=== PATIENT | female | born 1990 | race Caucasian/White ===

== ENCOUNTER 2025-03-18 13:14 | Emergency (ER) | payer BC, SELFPAY ==
[2025-03-18 13:22] VITALS: BP 128/66
[2025-03-18 14:05] LABS: ALT (SGPT) 21 U/L (0-35); AST (SGOT) 22 U/L (14-36); Albumin 5.3 g/dl (3.5-5.0); Alkaline Phosphatase 44 U/L (38-126); Blood Urea Nitrogen 18 mg/dl (7-17); Calcium 10.4 mg/dl (8.4-10.2); Carbon Dioxide 19 mmol/L (22-30); Chloride 109 mmol/L (98-107); Glucose 157 mg/dl (70-99); Lipase 72 U/L (23-300); Potassium 3.8 mmol/L (3.5-5.1); Sodium 136 mmol/L (135-145); Total Protein 7.7 g/dl (6.3-8.2); eGFR > 60.00
[2025-03-18 14:18] LABS: Hematocrit 37.6 % (37.0-47.0); Hemoglobin 13.2 g/dL (12.0-16.0); Mean Corp Hgb Conc. 35.1 g/dL (33.0-37.0); Mean Corpuscular Volume 89.5 fL (81.0-99.0); Nucleated Red Blood Cells % 0 %; Platelet Count 237 10^3/uL (130-400); Red Cell Dist. Width 13.0 % (11.5-14.5)
--- NOTE | 2025-03-18 17:53 | ED.GENMED ---
History of Present Illness
General
Chief Complaint: Abdominal Symptoms
Source: patient
Exam Limitations: none
Time Seen by Provider: 03/18/25 17:27
Nursing documentation reviewed up to this point in time: agreed with
History of Present Illness
History of Present Illness:
The patient is a 34-year-old female with a history of 'sliding hiatal hernia,' presenting with severe nausea, vomiting, and abdominal pain, which began 2 days ago. The patient reports awakening with nausea and vomiting, alongside an urgent need for
bowel movements but has had significant diarrhea, had one small liquid stool today. The condition became considerably worse around 4 a.m. The patient recalls a previous episode in April where droperidol was administered, notably preventing
hospitalization at that time. She took Zofran 11 a.m. with no relief. She states she cannot take Reglan as it makes her vomit.
She states she has had cyclical vomiting the past but states these symptoms are not consistent with that
Patient states it is her 'sliding hiatal hernia' that is causing her symptoms as she has had a similar episode about 1 year ago. She had a GI doctor but her insurance recently changed so she cannot go back to that person she is requesting the GI
doctor on staff here.
Past History
Past History
ED Past Medical History: Other (esophagitis, IBS, gastroenteritis, cyclical vomiting)
ED Past Surgical History: Other (endoscopy)
Review of Systems
Review of Systems
Allergies reviewed?: Yes
All Other Systems: ROS reviewed and negative except as documented in HPI and ROS
ABD/GI: Reports abdominal pain, nausea, vomiting and diarrhea (one small episode earlier today); Denies bloody stools or black stools
Phy Exam
Physical Exam
Physical Exam:
GENERAL: Moderate distress, actively retching. A&Ox3.
CONSTITUTIONAL: Afebrile.
EYES: clear, conjunctivae normal
ENMT: moist mucus membranes, Pharynx nl
RESPIRATORY: Regular respirations, nonlabored, lungs clear.
CARDIOVASCULAR: Regular rate and rhythm, no murmurs, no rubs.
GI: Soft, nontender, normal BS
MUSCULOSKELETAL: Moves with ease. Well perfused.
SKIN: Warm, dry, pink
PSYCH: Anxious mood and affect. Well kept, interactive and appropriate
NEUROLOGIC: Awake, alert and oriented. No focal neurological deficits
Course
Orders/Labs/Results
Orders:
Orders
03/18/25 13:24
EKG [Electrocardiogram (*1)] Urgent
Reason for Study: Syncope
03/18/25 13:25
EKG- Treatment ONCE
03/18/25 13:38
Complete Blood Count/With Diff Urgent
Comprehensive Metabolic Panel Urgent
HCG, Serum Qualitative Screen Urgent
Comment: ADD ON
Lipase Urgent
03/18/25 17:47
0.9% Sodium Chloride 1000 ml [Nss] 1,000 ml IV BOLUS
03/18/25 17:53
droPERidol [Inapsine] 1.25 mg IV NOW STA
03/18/25 18:20
Add On- LAB Urgent
Tests Added?: Serum hCG qualitative
03/18/25 18:25
Pantoprazole [Protonix IV] 80 mg IV NOW STA
Abnormal Lab Results
03/18/25
13:38
WBC 18.1 H 10^3/uL
(4.8-10.8)
MCH 31.4 H pg
(27.0-31.0)
Abs Immat Gran (auto) 0.1 H 10^3/uL
(0-0.05)
Absolute Neuts (auto) 16.1 H 10^3/uL
(1.4-6.5)
Absolute Lymphs (auto) 1.1 L 10^3/uL
(1.2-3.4)
Absolute Monos (auto) 0.7 H 10^3/uL
(0.1-0.6)
Neutrophils % 89.3 H %
(42.2-75.2)
Lymphocytes % 6.0 L %
(20.5-51.1)
Chloride 109 H mmol/L
(98-107)
Carbon Dioxide 19 L mmol/L
(22-30)
BUN 18 H mg/dl
(7-17)
Creatinine 0.5 L mg/dL
(0.6-1.0)
Glucose 157 H mg/dl
(70-99)
Calcium 10.4 H mg/dl
(8.4-10.2)
Albumin 5.3 H g/dl
(3.5-5.0)
03/18/25 13:38
03/18/25 13:38
Vital Signs
Initial and Last Documented VS:
Initial Vital Signs
Temp Pulse Resp BP Pulse Ox
99.0 F 80 17 128/66 100
03/18/25 13:22 03/18/25 13:22 03/18/25 13:22 03/18/25 13:22 03/18/25 13:22
Last Documented Vital Signs
Temp Pulse Resp BP Pulse Ox
99.0 F 80 17 128/66 86
03/18/25 13:22 03/18/25 13:22 03/18/25 13:22 03/18/25 13:22 03/18/25 18:45
MDM/Problems Addressed
Differential Diagnosis Includes:
Acute gastroenteritis, pancreatitis, viral gastroenteritis, GERD, Cannibis hyperemesis
MDM/Problems Addressed:
The patient is a 34-year-old female with a history of 'sliding hiatal hernia,' presenting with severe nausea, vomiting, and abdominal pain, which began 2 days ago. The patient reports awakening with nausea and vomiting, alongside an urgent need for
bowel movements but has had significant diarrhea, had one small liquid stool today. The condition became considerably worse around 4 a.m. The patient recalls a previous episode in April where droperidol was administered, notably preventing
hospitalization at that time. She states she cannot take Reglan as it makes her vomit.
Patient states it is her 'sliding hiatal hernia' that is causing her symptoms as she has had a similar episode about 1 year ago. She had a GI doctor but her insurance recently changed so she cannot go back to that person she is requesting the GI
doctor on staff here.
She states she has had cyclical vomiting the past but states these symptoms are not consistent with that
She uses marijuana occasionally and last smoked a week ago.
Used Sumatriptan Nasal [place], previously with some success, but not effective this current episode
She took Zofran 11 a.m. with no relief.
Spoke with pharmacist Fabiana who agreed Droperidol 1.25 mg IV is indicated here
EKG: NSR, normal QT interval
CBC: WBC 18.0 most likely reactive
CMP with no clinically significant abnormality
Lipase normal
6:40 PM:
Patient put her call berkowitz light on and asked if she could be discharged if she is feeling much better.
IV pantoprazole canceled as she took her dose earlier today (she takes pantoprazole 40 mg daily)
She asked for a refill of her Sumatriptan Imitrex 20 mg nasal spray as she is out and that usually helps her
They just changed insurance and need new PCP and GI so info sent to the PCP hotline and GI referral given.
*Pulse Oximetry
SaO2: 100
Oxygen Mode of Delivery: Room air
Patient hypoxic: not evaluated
*EKG
EKG Intrepretation Date: 03/18/25
Interpretation: normal
Heart Rate: 82
Rate: normal
Rhythm: sinus
Clive: normal axis
Interval: normal interval
QRS Pattern: normal QRS
Ischemia: no ischemia
*Critical Care Note
Total Time (30-74mins, 75-104mins- exclusive of procedures): Not Applicable
ED Attending Note
-
Portions of this chart may have been created with voice recognition software.� Occasional wrong word or��sound alike� substitutions may have occurred due to the inherent limitations of voice recognition software.
Discharge Plan
Departure
Patient Disposition: Home (Routine Discharge)
Date of Disposition: 03/18/25
Time of Disposition: 18:44
Patient with high blood pressure during this ER visit?: No
Condition: Good
Discharge Problem:
Nausea & vomiting
Instructions: Clear Liquid Diet, Nausea and Vomiting, Adult (DC)
Prescriptions:
New
sumatriptan 20 mg/actuation spray,non-aerosol
20 mg intranasal Q2H PRN (Reason: nausea and vomiting) Qty: 1 0RF
No Action
Vitamins
sucralfate 100 mg/mL Suspension
1 g PO ACHS Qty: 400 1RF
acetaminophen 325 mg Tablet
650 mg PO Q4HPRN PRN (Reason: mild pain/FOSS/temp> 100.4F) Qty: 60 0RF
ondansetron 4 mg tablet,disintegrating
4 mg PO Q8H 5 Days Qty: 15 0RF
pantoprazole 40 mg tablet,delayed release (DR/EC)
40 mg PO BID Qty: 60 0RF
Referrals:
Mary Jose MD [Active, Gastroenterology] - Next open appointment
NONE,* [Family Provider, Internal Medicine]
Activity Restrictions/Additional Instructions:
As we discussed, I sent a prescription to your pharmacy for the sumatriptan.
I sent your contact information to our PCP hotline, someone should contact you and help you get a PCP
Call the GI doctors office tomorrow and make next available appointment.
Continue your pantoprazole.
Interventions
Interventions:
*Risk Screen - Suicide Last Done: 03/18/25 13:24
*General Assessment Last Done: 03/18/25 13:24
*Neglect/Abuse Screening Last Done: 03/18/25 13:24
*ED COVID-19 Vaccine History Last Done: 03/18/25 13:24
*Nursing Disposition Last Done: 03/18/25 18:55
BZ-Vxeeyo-Bbfdeggjyj Assessment Last Done: 03/18/25 17:00
Discharge Date and Time
Discharge Date/Time: 03/18/25 18:56
Print Language: MAORI
[2025-03-18] MEDS: INAPSINE 1.25 MG IV (18:01)
[2025-03-18] MEDS: NSS 1000 IV (18:02)
[2025-03-18 18:03] VITALS: BMI 20.2
[2025-03-18 18:50] LABS: HCG, Serum Qualitative Screen Negative
== END 2025-03-18 18:56 | disposition home or self-care (01) ==
LOC: EMR 13:14
PROVIDERS: EMERGENCY PHYSICIAN Emergency Medicine
DX: R11.2 Nausea with vomiting, unspecified (principal); R10.9 Unspecified abdominal pain; F12.90 Cannabis use, unspecified, uncomplicated
CPT/HCPCS: 99284; 96374; 96361; 80053; 83690; 84703; 85025; 93005; J1790